=== PATIENT | female | born 1985 | race Caucasian/White ===

== ENCOUNTER 2016-07-18 03:59 | Emergency (ER) | payer SELFPAY ==
[2016-07-18 04:01] VITALS: BMI 39.6
[2016-07-18 04:08] VITALS: RESP 18; TEMP 97.8; O2SAT 97
--- NOTE | 2016-07-18 04:21 | ED PDOC ---
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 Patient states pain is localized to 5th metatarsal. She denies any other complaints. Time/Duration: Prior to Arrival Symptom Onset: Sudden Symptom Course: Unchanged Past Medical History - Provider Review Nursing Documentation Reviewed: Yes - Past History Past History: No Previous - Infectious Disease Hx of Infectious Diseases: None - Tetanus Immunization Tetanus Immunization: Unknown - Past Medical History Past Medical History: No Previous - Musculoskeletal/Rheumatological Hx Falls: No - Psychiatric Hx Depression: No Hx Emotional Abuse: No Hx Physical Abuse: No Hx Substance Use: No - Surgical History Hx Section: Yes (x2) - Anesthesia Hx Anesthesia: Yes Hx Anesthesia Reactions: No - Suicidal Assessment Feels Threatened In Home Enviroment: No Family/Social History - Physician Review Nursing Documentation Reviewed: Yes Family/Social History: Unknown Family HX Smoking Status: Heavy Smoker > 10 Cigarettes Daily Hx Alcohol Use: Yes Frequency of alcohol use: Socially Hx Substance Use: No Hx Substance Use Treatment: No Allergies/Home Meds Allergies/Adverse Reactions: Allergies No Known Allergies Allergy (Verified 01/31/13 11:16) Physical Exam - Physical Exam Narrative Physical Exam (Text): 07/18/16 04:21 - Review of Systems Constitutional: Normal. absent: Fatigue, Weight Change, Fevers Eyes: Normal ENT: Normal Respiratory: Normal absent: SOB, Cough, Sputum Cardiovascular: Normal absent: Chest pain, Palpitations, Syncope Gastrointestinal: Normal absent: Abdominal pain, Diarrhea, Nausea, Vomiting Genitourinary: Normal. absent: Dysuria, Frequency, Hematuria Musculoskeletal: Right foot pain. absent: Arthralgias, Back Pain, Neck Pain Skin: Normal Neurological: Normal absent: Focal Weakness Endocrine: Normal Hemo/Lymphatic: Normal Psychiatric: Normal - Physical exam Patient appears age appropriate, speaking full sentences without difficulty - Systems Exam Head: Present: Atraumatic, Normocephalic Pupils: Present: PERRL Extraocular Muscles: Present: EOMI Conjunctiva: Present: Normal Mouth: Present: Moist Mucous Membranes Neck: Present: Normal Range of Motion. No: MIDLINE TENDERNESS, Paraspinal Tenderness Respiratory/Chest: Present: Clear to Auscultation, Good Air Exchange. No: Respiratory Distress, Accessory Muscle Use, Tachypneic Cardiovascular: Present: Regular Rate and Rhythm, Normal S1, S2, Peripheral Pulses Present. No: Murmurs Abdomen: Present: Normal Bowel Sounds, No: Tenderness, Peritoneal Signs, Rebound, Guarding, Distention Back: Present: Normal Inspection. No: Midline Tenderness, Paraspinal Tenderness Upper Extremity: Present: Normal Inspection. No: Cyanosis, Edema Lower Extremity: Present: Right hip, knee, and ankle unremarkable. Tenderness over 5th metatarsal on palpation. No: Edema Neurological: Present: Distal neurovascular fully intact, GCS=15, Speech Normal , cranial nerves II through XII fully intact with no cerebellar abnormality, neuro-sensory fully intact. No focal neurological deficits. Skin: Present: Warm, Dry, Normal Color. No: Rashes Lymphatic: Present: OX3, NI, NC Psychiatric: Present: Alert, Oriented x 3, Normal Insight, Normal Concentration Vital Signs Reviewed: Yes Vital Signs Temp Pulse Resp BP Pulse Ox 07/18/16 04:07 97.8 F 102 H 18 134/81 97 Temperature: Afebrile Blood Pressure: Normal Pulse: Regular Respiratory Rate: Normal Appearance: Positive for: Well-Appearing, Non-Toxic, Comfortable Pain Distress: None Mental Status: Positive for: Alert and Oriented X 3 Medical Decision Making ED Course and Treatment: 07/18/16 04:24 Impression: 30 year old female complaining of right ankle pain s/p mechanical injury. Physical exam revealed tenderness over 5th metatarsal on palpation. Plan: --Motrin --XR right ankle --XR right foot -- Reassess and disposition Progress Notes: 07/18/16 04:57 Patient's ankle x-ray shows no acute fractures or dislocations Patient's foot x-ray shows nondisplaced third metatarsal fracture Splint applied, patient given crutches with ambulation instructions Pt states she understands to return to the ER right away for new or worsening symptoms or for inability to f/u with PMD or specialist as instructed. Patient states that she fully agrees with and understands discharge instructions. States that she agrees with the plan and disposition. Verbalized and repeated discharge instructions and plan. I have given the patient opportunity to ask any additional questions. - RAD Interpretation Radiology Orders: 07/18/16 04:14 ANKLE RIGHT 3 VIEWS ROUTINE [RAD] Stat FOOT RIGHT 3 VIEWS ROUTINE [RAD] Stat - Medication Orders Current Medication Orders: Discontinued Medications Ibuprofen (Motrin Tab) 600 mg PO STAT STA Stop: 07/18/16 04:15 Ibuprofen (Motrin Tab) Confirm Administered Dose 600 mg .ROUTE .STK-MED ONE Stop: 07/18/16 04:38 Last Admin: 07/18/16 04:40 Dose: 600 MG MAR Pain/Vitals Document 07/18/16 04:40 KKL (Rec: 07/18/16 04:41 [id number]) Pain Reassessment Is This A Pain ReAssessment? Yes Sleep Is patient sleeping during reassessment? No Presence of Pain Presence of Pain Yes Pain Scale Used Pain Scale Used Numeric Location Left, Right or Bilateral Right Upper or Lower Lower Pain Location Body Site Foot Description Constant Intensity 8 Scale Used Numeric Aggravating Factors Changing Position Standing Walking - Scribe Statement The provider has reviewed the documentation as recorded by the Westonibe Sabine Lilly Provider Scribe Attestation: All medical record entries made by the Scribe were at my direction and personally dictated by me. I have reviewed the chart and agree that the record accurately reflects my personal performance of the history, physical exam, medical decision making, and the department course for this patient. I have also personally directed, reviewed, and agree with the discharge instructions and disposition. Disposition/Present on Arrival - Present on Arrival Any Indicators Present on Arrival: No History of DVT/PE: No History of Uncontrolled Diabetes: No Urinary Catheter: No History of Decub. Ulcer: No History Surgical Site Infection Following: None - Disposition Have Diagnosis and Disposition been Completed?: Yes Diagnosis: Foot fracture Disposition: HOME/ ROUTINE Disposition Time: 04:58 Patient Plan: Discharge Condition: GOOD Discharge Instructions (ExitCare): Foot Fracture in Adults (ED) Additional Instructions: PLEASE RETURN TO THE EMERGENCY DEPARTMENT FOR NEW OR WORSENING SYMPTOMS. RETURN RIGHT AWAY IF YOU CANNOT FOLLOW UP WITH YOUR PRIMARY CARE DOCTOR, CLINIC, OR SPECIALIST IN 1-2 DAYS. Prescriptions: Ibuprofen [Motrin] 600 mg PO Q8 PRN #12 tab PRN Reason: Pain, Moderate (4-7) Acetaminophen with Codeine [Tylenol with Codeine #3 Tablet] 1 each PO Q6 PRN # 12 tablet PRN Reason: Pain, Severe (8-10) Referrals: Yahir Varela MD [Staff Provider] - Follow up with primary Santiago Dumont DPM [Staff Provider] - Follow up with primary Forms: WORK NOTE
[2016-07-18 06:24] VITALS: BP 138/78; PULSE 78
--- NOTE | 2016-07-18 12:26 | RAD ---
PROCEDURE: Right Foot Radiographs. HISTORY: pain COMPARISON: None. FINDINGS: BONES: There is no acute fracture or bone destruction. Bone alignment and mineralization are normal. JOINTS: The joint spaces are preserved. SOFT TISSUES: There is moderate soft tissue swelling in the foot. OTHER FINDINGS: None. IMPRESSION: No acute fracture or dislocation. Moderate soft tissue swelling in the foot could which could represent cellulitis in the appropriate clinical setting. Clinical follow-up is advised.
--- NOTE | 2016-07-18 12:28 | RAD ---
PROCEDURE: Right Ankle Radiographs. HISTORY: fall COMPARISON: None FINDINGS: BONES: There is no acute fracture or bone destruction. Bone alignment and mineralization are normal. There is an os trigonum. JOINTS: Normal. No osteoarthritis. Ankle mortise maintained. Talar dome intact SOFT TISSUES: There is mild periarticular soft tissue swelling. OTHER FINDINGS: None. IMPRESSION: No acute fracture or dislocation. Mild periarticular soft tissue swelling.
== END 2016-07-18 06:25 | disposition home or self-care (01) ==
LOC: ED 03:59
DX: S92.334A Nondisplaced fracture of third metatarsal bone, right foot, initial encounter for closed fracture (principal); W19.XXXA Unspecified fall, initial encounter; Y92.89 Other specified places as the place of occurrence of the external cause

== ENCOUNTER 2018-07-20 15:25 | Emergency (ER) | payer MEDICAID, OTHER ==
[2018-07-20 15:30] VITALS: BMI 41.5
[2018-07-20 15:33] VITALS: RESP 18
--- NOTE | 2018-07-20 16:03 | ED PDOC ---
Arrival/HPI - General Chief Complaint: Trauma Time Seen by Provider: 07/20/18 15:27 Historian: Patient - History of Present Illness Narrative History of Present Illness (Text): 07/20/18 15:59 32 year old female, with no presents to the emergency department 10 weeks based on last menstrual period, but no ultrasound confirmation, for evaluation s/p fall yesterday. Patient states she was walking down the stairs when she missed a step and fell backwards on her back. Patient states she was feeling fine after the fall, but is now complaining of cramping back pain. She denies vaginal bleeding, vaginal discharge, midline pain, nasuea, vomiting, diarrhea, neck pain, or any other complaint. Time/Duration: 24 hours Symptom Onset: Gradual Symptom Course: Unchanged Quality: Cramping Activities at Onset: Light Context: Home Past Medical History - Provider Review Nursing Documentation Reviewed: Yes - Past History Past History: No Previous - Infectious Disease Hx of Infectious Diseases: None - Tetanus Immunization Tetanus Immunization: Unknown - Past Medical History Past Medical History: No Previous - Musculoskeletal/Rheumatological Hx Falls: No - Psychiatric Hx Depression: No Hx Emotional Abuse: No Hx Physical Abuse: No Hx Substance Use: No - Surgical History Hx Section: Yes (x2) - Anesthesia Hx Anesthesia: Yes Hx Anesthesia Reactions: No - Suicidal Assessment Feels Threatened In Home Enviroment: No Family/Social History - Physician Review Nursing Documentation Reviewed: Yes Family/Social History: No Known Family HX Smoking Status: Heavy Smoker > 10 Cigarettes Daily Hx Alcohol Use: Yes Hx Substance Use: No Hx Substance Use Treatment: No Allergies/Home Meds Allergies/Adverse Reactions: Allergies No Known Allergies Allergy (Verified 07/20/18 15:30) Home Medications: Home Meds Medication Instructions Recorded Confirmed No Known Home Med 07/20/18 07/20/18 Review of Systems - Review of Systems Constitutional: absent: Fevers Respiratory: absent: SOB, Cough, Sputum, Wheezing Cardiovascular: absent: Chest Pain, Palpitations Gastrointestinal: absent: Abdominal Pain, Diarrhea, Nausea, Vomiting Genitourinary Female: absent: Dysuria, Frequency, Hematuria Musculoskeletal: Back Pain. absent: Neck Pain Neurological: absent: Headache, Dizziness, Focal Weakness, Gait Changes, Speech Changes, Facial Droop Physical Exam Vital Signs Reviewed: Yes Vital Signs Temp Pulse Resp BP Pulse Ox 07/20/18 15:33 97.6 F 107 H 18 118/83 97 Temperature: Afebrile Blood Pressure: Normal Pulse: Tachycardic Respiratory Rate: Normal Appearance: Positive for: Well-Appearing, Non-Toxic, Comfortable Pain Distress: None Mental Status: Positive for: Alert and Oriented X 3 - Systems Exam Head: Present: Atraumatic, Normocephalic Pupils: Present: PERRL Extroacular Muscles: Present: EOMI Conjunctiva: Present: Normal Mouth: Present: Moist Mucous Membranes Neck: Present: Normal Range of Motion Respiratory/Chest: Present: Clear to Auscultation, Good Air Exchange. No: Respiratory Distress, Accessory Muscle Use Cardiovascular: Present: Regular Rate and Rhythm, Normal S1, S2. No: Murmurs Abdomen: No: Tenderness, Distention, Peritoneal Signs Back: Present: Paraspinal Tenderness (paraspinal lumbar tenderness bilaterally). No: Midline Tenderness Upper Extremity: Present: Normal Inspection. No: Cyanosis, Edema Lower Extremity: Present: Normal Inspection. No: Edema Neurological: Present: GCS=15, CN II-XII Intact, Speech Normal Skin: Present: Warm, Dry, Normal Color. No: Rashes Psychiatric: Present: Alert, Oriented x 3, Normal Insight, Normal Concentration Medical Decision Making ED Course and Treatment: 07/20/18 16:06 Impression: 32 year old female who presents to the emergency department for evaluation s/p fall. Neurologically intact with no midline pain. Plan: -- Labs -- urine culute -- OB Transvaginal US -- Transvaginal US -- Reassess and disposition Prior Visits: Notes and results from previous visits were reviewed. Progress Notes: 07/20/18 17:15 Transvaginal US reviewed by radiologist, shows: IMPRESSION: Single live intrauterine gestation of approximately 10 weeks 1 day gestational age. no subchorionic hemorrhage. Cervix long and closed. Unremarkable ovaries. 07/20/18 17:17 Patient denies vaginal bleeding. She has had no direct abdominal trauma. U/s confirmed IUP at 10weeks. Has trimmer hand follow-up. She is ambulating around the ED without issue. - Lab Interpretations I have reviewed the lab results: Yes - RAD Interpretation Radiology Orders: 07/20/18 15:39 TRANSVAGINAL [US] Stat Collection Supervisor: Radiologist - Scribe Statement The provider has reviewed the documentation as recorded by the Scribe Madison Mcallister All medical record entries made by the Scribe were at my direction and personally dictated by me. I have reviewed the chart and agree that the record accurately reflects my personal performance of the history, physical exam, medical decision making, and the department course for this patient. I have also personally directed, reviewed, and agree with the discharge instructions and disposition. Disposition/Present on Arrival - Present on Arrival Any Indicators Present on Arrival: No History of DVT/PE: No History of Uncontrolled Diabetes: No Urinary Catheter: No History of Decub. Ulcer: No History Surgical Site Infection Following: None - Disposition Have Diagnosis and Disposition been Completed?: Yes Diagnosis: Fall, , Contusion Disposition: HOME/ ROUTINE Disposition Time: 17:03 Patient Plan: Discharge Patient Problems: Current Active Problems Problem Status Onset Fall Acute Acute Contusion Acute Condition: GOOD Discharge Instructions (ExitCare): Contusion (DC), Care, - The Third Month Additional Instructions: Follow-up with your OB within 2 days. Return to ED if condition worsens. Take vitamins daily. Referrals: PCP,NO [Primary Care Provider] - Follow up with primary Forms: [employer] (Kiswahili)
[2018-07-20 16:26] LABS: BASO # 0.03 K/mm3 (0.0-2.0); BASO % 0.2 % (0.0-3.0); EOS # 0.3 (0.0-0.7); EOS % 1.6 % (1.5-5.0); HEMOGLOBIN 13.8 g/dL (12.0-16.0); LYMPH # 3.2 (1.2-3.4); LYMPH % 20.9 % (22.0-35.0); MEAN CELL VOLUME 94.8 fl (80.0-105.0); MEAN CORPUSCULAR HEMOGLOBIN 32.4 pg (25.0-35.0); MEAN CORPUSCULAR HGB CONC 34.2 g/dl (31.0-37.0); MEAN PLATELET VOLUME 8.8 fl (7.0-11.0); MONO # 0.7 (0.1-0.6); MONO % 4.5 % (1.0-6.0); RBC 4.26 10^6/uL (3.5-6.1); RED CELL DISTRIBUTION WIDTH 12.3 % (11.5-14.5); WHITE BLOOD COUNT 15.3 10^3/uL (4.5-11.0)
[2018-07-20 16:29] LABS: PH,URINE 6.5 (4.7-8.0); URINE BILIRUBIN NEGATIVE (NEGATIVE); URINE BLOOD NEGATIVE (NEGATIVE); URINE GLUCOSE (UA) NEGATIVE (NEGATIVE); URINE LEUKOCYTE ESTERASE NEGATIVE Leu/uL (NEGATIVE); URINE PROTEIN TRACE mg/dL (<30 mg/dL); URINE UROBILINOGEN 0.2 E.U./dL (<1 E.U./dL)
[2018-07-20 16:38] LABS: URINE APPEARANCE SL CLOUDY (CLEAR); URINE COLOR YELLOW (YELLOW)
[2018-07-20 16:56] LABS: BLOOD UREA NITROGEN 7 mg/dL (7-21); CALCIUM 9.8 mg/dL (8.4-10.5); GFR NON-AFRICAN AMERICAN > 60
[2018-07-20 16:56] LABS: URINE BACTERIA FEW /hpf
--- NOTE | 2018-07-20 17:12 | US ---
Date of service: 07/20/2018 PROCEDURE: OB Pelvic Ultrasound HISTORY: 10 weesk , cramping 04/23/2018 COMPARISON: None available. FINDINGS: UTERUS: Gestational sac: Sac diameter is 43 mm equal to 9 weeks 5 days gestational age. [place]-rump length is 36 mm equivalent to 10 weeks 3 days. Heart rate: 169 bpm. age (Ultrasound estimated): 10 weeks 1 day [place]-gestational hemorrhage: None. Date of delivery (Ultrasound estimated) : 02/14/2019 4 mm yolk sac visualized. Uterus measures 12.8 x 7.2 x 9.3 cm. Normal in size and appearance. CERVIX: Measures 3.1 cm. Long and closed. No cervical abnormality seen. RIGHT OVARY: Measures 2.5 x 2.8 x 2.4 cm. No mass lesion. Normal flow. LEFT OVARY: Measures 3.1 x 3.2 x 1.8 cm. No solid mass. Normal flow. FREE FLUID: None. OTHER FINDINGS: None. IMPRESSION: Single live intrauterine gestation of approximately 10 weeks 1 day gestational age. No subchorionic hemorrhage. Cervix long and closed. Unremarkable ovaries.
[2018-07-20 17:21] VITALS: BP 127/84; PULSE 102; TEMP 98.2; O2SAT 99
== END 2018-07-20 17:24 | disposition home or self-care (01) ==
LOC: ED 15:25
DX: T14.8XXA Other injury of unspecified body region, initial encounter (principal); W10.9XXA Fall (on) (from) unspecified stairs and steps, initial encounter; O26.891 Other specified pregnancy related conditions, first trimester; Z3A.10 10 weeks gestation of pregnancy